=== PATIENT | male | born 1950 | race Caucasian/White ===

== ENCOUNTER 2019-11-28 09:44 | Inpatient (IN) | payer OTHER ==
[~2019-11-28] VITALS: Ht 170.2 cm; Wt 90.3 kg
[2019-11-28 10:53] LABS: BG BASE EXCESS -4.1 mmol/L (-2.0-2.0); BG CARBOXYHEMOGLOBIN 1.1 % (0.5-1.5); BG HCO3 ACT 19.6 mmol/L (22.0-26.0); BG OXYGEN SATURATION 92.9 % (92.0-98.5); BG OXYHEMOGLOBIN 91.9 % (94.0-97.0); BG PCO2 32.2 mmHg (35.0-45.0); BG PH 7.402 (7.350-7.450); BG PO2 67.6 mmHg (75.0-100.0); BG SAMPLE SITE RIGHT RADIAL; BG TOTAL HEMOGLOBIN 14.4 g/dL (12.0-18.0); BG VENT MODE ROOM AIR
[2019-11-28] MEDS ORDERED: MORPHINE SULFATE 4 MG/ML CPJ (NOT FOR IM USE) IV ONE (11:15)
[2019-11-28] MEDS ORDERED: LEVOFLOXACIN 750MG PREMIX 150 ML IV ONE (11:15)
[2019-11-28 11:39] LABS: HEMATOCRIT. 41.1 % (42.0-52.0); HEMOGLOBIN. 13.6 g/dL (14.0-18.0); MEAN CORPUSCULAR HEMOGLOBIN 28.7 pg (28.0-32.0); MEAN CORPUSCULAR VOLUME 86.5 fL (80.0-94.0); MEAN PLATELET VOLUME 9.2 fl (7.4-10.4); PLATELET 191 x1000/uL (130-400); RED BLOOD CELL COUNT 4.75 mill/uL (4.7-6.1); RED CELL DISTRIBUTION WIDTH 15.3 % (11.6-14.6)
[2019-11-28 11:47] LABS: CHLORIDE 100 mEq/L (98-107)
[2019-11-28] MEDS ORDERED: KETOROLAC 30MG/ML VIAL IV ONE (12:00)
[2019-11-28 12:05] LABS: PLATELET ESTIMATE NORMAL
[2019-11-28] MEDS ORDERED: MAGNESIUM/ALUMINUM HYDROXIDE/SIMETHICONE 30ML UDC PO PRN (12:45)
[2019-11-28] MEDS ORDERED: ZOLPIDEM TARTRATE 5MG TABLET PO PRN ×2 (12:45)
[2019-11-28] MEDS ORDERED: CLONIDINE 0.1MG TABLET PO PRN (12:45)
[2019-11-28] MEDS ORDERED: GUAIFENESIN 200MG/10ML SUGAR FREE UDC PO PRN (12:45)
[2019-11-28] MEDS ORDERED: DOCUSATE SODIUM 100MG CAPSULE PO PRN (12:45)
[2019-11-28] MEDS ORDERED: ONDANSETRON HCL 4MG/2ML INJ IV PRN (12:45)
[2019-11-28] MEDS ORDERED: IPRATROPIUM/ALBUTEROL 0.5-3(2.5)MG/3ML NEB NEB PRN (12:45)
[2019-11-28] MEDS ORDERED: ACETAMINOPHEN 325MG TABLET PO PRN (12:45)
[2019-11-28] MEDS ORDERED: NITROGLYCERIN 0.4MG TABLET SL SL PRN (12:45)
[2019-11-28] MEDS ORDERED: CEFTRIAXONE 1 G PREMIX 50 ML IV SCH (13:30)
[2019-11-28] MEDS ORDERED: AZITHROMYCIN 500 MG in DEXT 5% WATER 250 ML IV SCH (14:00)
[2019-11-28] MEDS: ZINC SULFATE 220 MG ( 50 ) CAPSULE PO SCH (14:15)
[2019-11-28] MEDS: GUAIFENESIN/DM 600MG/30MG ER TAB 12HR PO SCH ×2 (14:15→22:00)
[2019-11-28] MEDS ORDERED: ENOXAPARIN 40MG/0.4ML SYR SUBCUT SCH (15:33)
[2019-11-28 16:50] VITALS: BP 104/64
[2019-11-28] MEDS ORDERED: TAMS-11 PO (16:59)
[2019-11-28] MEDS ORDERED: ENAL10TA PO (16:59)
[2019-11-28 17:06] VITALS: BP 104/64
[2019-11-28] MEDS: ENOXAPARIN 40MG/0.4ML SYR SUBCUT SCH (18:57)
[2019-11-28 20:00] VITALS: BP 106/73
[2019-11-28] MEDS: FAMOTIDINE 20MG TABLET PO SCH (22:00)
[2019-11-28] MEDS: ASCORBIC ACID 500 MG TABLET PO SCH (22:00)
[2019-11-29] VITALS: BP 107/75
[2019-11-29] MEDS: TRAMADOL 50MG TABLET PO PRN ×2 (03:16→21:48)
[2019-11-29 04:00] VITALS: BP 109/78
[2019-11-29 08:00] VITALS: BP 116/80
[2019-11-29] MEDS: ZINC SULFATE 220 MG ( 50 ) CAPSULE PO SCH (09:46)
[2019-11-29] MEDS: GUAIFENESIN/DM 600MG/30MG ER TAB 12HR PO SCH ×2 (09:46→21:30)
[2019-11-29] MEDS: ASCORBIC ACID 500 MG TABLET PO SCH ×2 (09:46→21:30)
[2019-11-29] MEDS: ASPIRIN 325MG EC TABLET PO SCH (09:46)
[2019-11-29] MEDS ORDERED: IPRATROPIUM/ALBUTEROL 0.5-3(2.5)MG/3ML NEB HHN PRN (13:30)
[2019-11-29 16:00] VITALS: BP 119/71
[2019-11-29 20:00] VITALS: BP 135/71
[2019-11-29 21:01] LABS: CREATINE KINASE MB FRACTION 1.8 ng/mL (0.5-3.6)
[2019-11-29] MEDS: FAMOTIDINE 20MG TABLET PO SCH (21:30)
[2019-11-29] MEDS: ENOXAPARIN 40MG/0.4ML SYR SUBCUT SCH (21:45)
[2019-11-29] MEDS: IPRATROPIUM/ALBUTEROL 0.5-3(2.5)MG/3ML NEB HHN SCH (21:59)
[2019-11-29] MEDS: CEFTRIAXONE 1 G PREMIX 50 ML IV SCH (23:13)
[2019-11-29] MEDS: AZITHROMYCIN 500 MG in DEXT 5% WATER 250 ML IV SCH (23:51)
[2019-11-30] VITALS: BP 106/72
[2019-11-30] MEDS: IPRATROPIUM/ALBUTEROL 0.5-3(2.5)MG/3ML NEB HHN SCH ×4 (02:15→21:55)
[2019-11-30 04:00] VITALS: BP 93/51
[2019-11-30 04:36] LABS: CLARITY URINE CLOUDY (CLEAR); COLOR URINE DARK YELLOW (YELLOW); KETONES URINE NEGATIVE (NEGATIVE); LEUKOCYTE ESTERASE URINE 1+ (NEGATIVE); NITRITE URINE NEGATIVE (NEGATIVE); OCCULT BLOOD URINE NEGATIVE (NEGATIVE); PROTEIN URINE 2+ (NEGATIVE); SPECIFIC GRAVITY URINE 1.023 (1.005-1.030)
[2019-11-30 08:00] VITALS: BP 121/70
[2019-11-30] MEDS: ASPIRIN 325MG EC TABLET PO SCH (09:00)
[2019-11-30] MEDS: TRAMADOL 50MG TABLET PO PRN (09:00)
[2019-11-30] MEDS: GUAIFENESIN/DM 600MG/30MG ER TAB 12HR PO SCH ×2 (09:00→20:01)
[2019-11-30] MEDS: ZINC SULFATE 220 MG ( 50 ) CAPSULE PO SCH (09:00)
[2019-11-30] MEDS: ASCORBIC ACID 500 MG TABLET PO SCH ×2 (09:00→20:01)
[2019-11-30] MEDS: AZITHROMYCIN 500 MG in DEXT 5% WATER 250 ML IV SCH (10:07)
[2019-11-30] MEDS: CEFTRIAXONE 1 G PREMIX 50 ML IV SCH (10:51)
[2019-11-30 12:00] VITALS: BP 98/70
[2019-11-30 16:00] VITALS: BP 127/77
[2019-11-30] MEDS: ENOXAPARIN 40MG/0.4ML SYR SUBCUT SCH (17:32)
[2019-11-30 20:00] VITALS: BP 112/85
[2019-11-30] MEDS: FAMOTIDINE 20MG TABLET PO SCH (20:03)
[2019-12-01] VITALS: BP 121/85
[2019-12-01] MEDS: IPRATROPIUM/ALBUTEROL 0.5-3(2.5)MG/3ML NEB HHN SCH ×2 (01:08→10:51)
[2019-12-01 04:00] VITALS: BP 107/74
[2019-12-01 06:20] LABS: EOSINOPHILS % 0.7 % (0.0-5.0); HEMATOCRIT. 42.3 % (42.0-52.0); HEMOGLOBIN. 14.1 g/dL (14.0-18.0); LYMPHOCYTES % 8.1 % (20.0-50.0); MEAN CORPUSCULAR HEMOGLOBIN 28.4 pg (28.0-32.0); MEAN CORPUSCULAR VOLUME 85.3 fL (80.0-94.0); MEAN PLATELET VOLUME 9.6 fl (7.4-10.4); MONOCYTES % 7.3 % (2.0-8.0); NEUTROPHILS % 83.9 % (40.0-76.0); PLATELET 219 x1000/uL (130-400); RED BLOOD CELL COUNT 4.96 mill/uL (4.7-6.1); RED CELL DISTRIBUTION WIDTH 15.9 % (11.6-14.6)
[2019-12-01 06:22] LABS: CHLORIDE 97 mEq/L (98-107)
[2019-12-01] MEDS ORDERED: CEFP200T14 MT (07:50)
[2019-12-01] MEDS ORDERED: AZIT500T8 MT (07:50)
[2019-12-01] MEDS ORDERED: GUAI600T26 MT (07:50)
[2019-12-01 08:00] VITALS: BP 120/87
[2019-12-01] MEDS: ZINC SULFATE 220 MG ( 50 ) CAPSULE PO SCH (08:36)
[2019-12-01] MEDS: GUAIFENESIN/DM 600MG/30MG ER TAB 12HR PO SCH (08:36)
[2019-12-01] MEDS: ASCORBIC ACID 500 MG TABLET PO SCH (08:36)
[2019-12-01] MEDS: ASPIRIN 325MG EC TABLET PO SCH (08:36)
[2019-12-01] MEDS ORDERED: AZITHROMYCIN 500 MG TABLET PO SCH (09:00)
[2019-12-01] MEDS ORDERED: POTASSIUM CHLORIDE 20MEQ TABLET SR PO SCH (10:00)
[2019-12-01] MEDS: CEFTRIAXONE 1 G PREMIX 50 ML IV SCH (10:00)
[2019-12-01 10:46] VITALS: BP 120/87
[2019-12-01 12:00] VITALS: BP 124/89
== END 2019-12-01 12:05 | disposition home or self-care (01) | DRG 193 ==
LOC: ER 10:19 → ENRESERV 15:50 → 7EST 16:54 → 5WST 11-29 15:08
PROVIDERS: ADMIT Internal Medicine; ATTEND Internal Medicine
DX: J18.9 Pneumonia, unspecified organism (principal); J96.01 Acute respiratory failure with hypoxia; N17.0 Acute kidney failure with tubular necrosis; E44.1 Mild protein-calorie malnutrition; E83.51 Hypocalcemia; I10 Essential (primary) hypertension; K40.90 Unilateral inguinal hernia, without obstruction or gangrene, not specified as recurrent; Z20.828 Contact with and (suspected) exposure to other viral communicable diseases; Z79.899 Other long term (current) drug therapy; Z68.31 Body mass index [BMI] 31.0-31.9, adult; Z82.49 Family history of ischemic heart disease and other diseases of the circulatory system; Z87.440 Personal history of urinary (tract) infections; Z03.818 Encounter for observation for suspected exposure to other biological agents ruled out
CPT/HCPCS: 36415; 36600; 71045; 80053; 80061; 81003; 82375; 82550; 82553; 82805; 83036; 83615; 83880; 84145; 84484; 85025; 85379; 86140; 87635; 87804; 93005; 94640; 99291; J0456; J0696; J1650; J1885; J1956; J7060

== ENCOUNTER 2019-12-03 22:21 | Inpatient (IN) | payer OTHER ==
[~2019-12-03] VITALS: Ht 165.1 cm; Wt 89.4 kg
[~2019-12-03 22:21] MED LIST: AZIT500T8 MT; CEFP200T14 MT; ENAL10TA PO; GUAI600T26 MT; TAMS-11 PO
[2019-12-03] MEDS ORDERED: MORPHINE SULFATE 4 MG/ML CPJ (NOT FOR IM USE) IV STA (23:15)
[2019-12-03] MEDS ORDERED: ONDANSETRON HCL 4MG/2ML INJ IV STA (23:15)
[2019-12-03] MEDS ORDERED: SODIUM CHLORIDE 0.9% 1,000 ML IV ONE (23:30)
[2019-12-03 23:40] LABS: HEMATOCRIT. 44.2 % (42.0-52.0); HEMOGLOBIN. 14.7 g/dL (14.0-18.0); MEAN CORPUSCULAR HEMOGLOBIN 28.4 pg (28.0-32.0); MEAN CORPUSCULAR VOLUME 85.5 fL (80.0-94.0); MEAN PLATELET VOLUME 8.8 fl (7.4-10.4); PLATELET 286 x1000/uL (130-400); RED BLOOD CELL COUNT 5.17 mill/uL (4.7-6.1); RED CELL DISTRIBUTION WIDTH 16.1 % (11.6-14.6)
[2019-12-03] MEDS ORDERED: FENTANYL CITRATE/PF 50MCG/ML 2ML VIAL IV ONE (23:45)
[2019-12-03 23:47] LABS: CHLORIDE 90 mEq/L (98-107)
[2019-12-03 23:56] LABS: CREATINE KINASE 120 IU/L (39-308)
[2019-12-03 23:59] LABS: D-DIMER 11.06 mg/L FEU (<0.50); INR 1.3; PROTHROMBIN TIME 13.6 sec (9.6-11.0)
[2019-12-03 23:59] LABS: CLARITY URINE TURBID (CLEAR); COLOR URINE DARK YELLOW (YELLOW); KETONES URINE TRACE (NEGATIVE); LEUKOCYTE ESTERASE URINE TRACE (NEGATIVE); NITRITE URINE NEGATIVE (NEGATIVE); OCCULT BLOOD URINE NEGATIVE (NEGATIVE); PROTEIN URINE 2+ (NEGATIVE); SPECIFIC GRAVITY URINE 1.023 (1.005-1.030)
[2019-12-04] VITALS (57 sets, daily range): BP systolic 60–158; BP diastolic 37–109
[2019-12-04] MEDS ORDERED: SODIUM CHLORIDE 0.9% 1000ML BAG (SEPSIS BOLUS) IV ONE
[2019-12-04 00:04] LABS: PLATELET ESTIMATE NORMAL
[2019-12-04] MEDS ORDERED: DOPAMINE 800MG/500ML PREMIX 500 ML IV ONE (01:45)
[2019-12-04] MEDS ORDERED: DOPAMINE 800MG/500ML PREMIX 500 ML IV SCH (02:00)
[2019-12-04] MEDS ORDERED: FENTANYL CITRATE/PF 50MCG/ML 2ML VIAL ONE (03:21)
[2019-12-04] MEDS ORDERED: PIPERACILLIN/TAZ 3.375G PREMIX 50 ML IV SCH (12:00)
[2019-12-04] MEDS ORDERED: DIPHENHYDRAMINE 50MG/ML VIAL IV PRN (12:00)
[2019-12-04] MEDS ORDERED: ONDANSETRON HCL 4MG/2ML INJ IV PRN (12:00)
[2019-12-04] MEDS ORDERED: DOPAMINE 400MG/250ML PREMIX 250 ML IV PRN (12:00)
[2019-12-04] MEDS: PANTOPRAZOLE SODIUM 40 MG/VIAL IV SCH ×2 (13:52→20:54)
[2019-12-04] MEDS: SODIUM CHLORIDE 0.9% 1,000 ML IV SCH ×2 (13:53→20:54)
[2019-12-04] MEDS: MORPHINE SULFATE 2 MG/ML CPJ (NOT FOR IM USE) IV PRN (13:54)
[2019-12-04] MEDS ORDERED: LIDOCAINE HCL 1% 20ML VIAL (Pyxis) INJ INFIL NR (14:30)
[2019-12-04] MEDS: PIPERACILLIN/TAZOBACTAM 2.25 G in DEXTROSE 5% WATER 50 ML IV SCH ×2 (15:32→20:54)
[2019-12-04 17:41] LABS: BG CARBOXYHEMOGLOBIN 0.3 % (0.5-1.5); BG DEOXYHEMOGLOBIN 8.1 % (0.0-5.0); BG FRACTION INSPIRED OXYGEN 28; BG HCO3 ACT 19.3 mmol/L (22.0-26.0); BG METHEMOGLOBIN 0.4 % (0.0-1.5); BG OXYGEN SATURATION 91.8 % (92.0-98.5); BG OXYHEMOGLOBIN 91.2 % (94.0-97.0); BG PCO2 30.6 mmHg (35.0-45.0); BG PH 7.418 (7.350-7.450); BG PO2 64.9 mmHg (75.0-100.0); BG SAMPLE SITE RIGHT RADIAL; BG TOTAL HEMOGLOBIN 13.8 g/dL (12.0-18.0); BG VENT MODE NASAL CANNULA
[2019-12-04] MEDS ORDERED: ALBUMIN HUMAN 25GM/500ML (5%) IV SCH (21:00)
[2019-12-04 22:52] LABS: HEMATOCRIT. 41.4 % (42.0-52.0); HEMOGLOBIN. 13.6 g/dL (14.0-18.0); MEAN CORPUSCULAR VOLUME 85.2 fL (80.0-94.0); MEAN PLATELET VOLUME 7.8 fl (7.4-10.4); RED BLOOD CELL COUNT 4.86 mill/uL (4.7-6.1); RED CELL DISTRIBUTION WIDTH 15.7 % (11.6-14.6)
[2019-12-04 22:59] LABS: CHLORIDE 100 mEq/L (98-107)
[2019-12-05] VITALS (96 sets, daily range): BP systolic 90–123; BP diastolic 47–80
[2019-12-05] MEDS ORDERED: ALBUMIN HUMAN 25GM/100ML (25%) IV SCH (00:15)
[2019-12-05] MEDS ORDERED: CALCIUM GLUCONATE 3,000 MG in DEXT 5% WATER 250 ML IV SCH (02:00)
[2019-12-05] MEDS: PIPERACILLIN/TAZOBACTAM 2.25 G in DEXTROSE 5% WATER 50 ML IV SCH ×4 (03:01→20:40)
[2019-12-05 05:31] LABS: HEMATOCRIT. 37.8 % (42.0-52.0); HEMOGLOBIN. 12.5 g/dL (14.0-18.0); MEAN CORPUSCULAR HEMOGLOBIN 28.1 pg (28.0-32.0); MEAN CORPUSCULAR VOLUME 85.1 fL (80.0-94.0); MEAN PLATELET VOLUME 7.7 fl (7.4-10.4); PLATELET 196 x1000/uL (130-400); RED BLOOD CELL COUNT 4.44 mill/uL (4.7-6.1); RED CELL DISTRIBUTION WIDTH 15.8 % (11.6-14.6)
[2019-12-05 05:46] LABS: CHLORIDE 102 mEq/L (98-107)
[2019-12-05 05:55] LABS: PHOSPHORUS 4.3 mg/dL (2.5-4.9)
[2019-12-05 07:51] LABS: PLATELET ESTIMATE NORMAL
[2019-12-05 07:54] LABS: PLATELET 201 x1000/uL (130-400)
[2019-12-05] MEDS: SODIUM CHLORIDE 0.9% 1,000 ML IV SCH ×2 (08:50→17:40)
[2019-12-05] MEDS: PANTOPRAZOLE SODIUM 40 MG/VIAL IV SCH (08:50)
[2019-12-05 10:01] LABS: PLATELET ESTIMATE NORMAL
[2019-12-05] MEDS ORDERED: FUROSEMIDE 40MG/4ML VIAL IVP SCH (11:15)
[2019-12-05] MEDS ORDERED: CALCIUM GLUCONATE 3,000 MG in DEXT 5% WATER 220 ML IV SCH (12:00)
[2019-12-06] VITALS (92 sets, daily range): BP systolic 93–141; BP diastolic 43–81
[2019-12-06] MEDS: PIPERACILLIN/TAZOBACTAM 2.25 G in DEXTROSE 5% WATER 50 ML IV SCH ×4 (02:35→20:22)
[2019-12-06 05:29] LABS: HEMATOCRIT. 37.9 % (42.0-52.0); HEMOGLOBIN. 12.3 g/dL (14.0-18.0); MEAN CORPUSCULAR HEMOGLOBIN 27.8 pg (28.0-32.0); MEAN CORPUSCULAR VOLUME 85.5 fL (80.0-94.0); MEAN PLATELET VOLUME 7.4 fl (7.4-10.4); PLATELET 173 x1000/uL (130-400); RED BLOOD CELL COUNT 4.43 mill/uL (4.7-6.1); RED CELL DISTRIBUTION WIDTH 15.4 % (11.6-14.6)
[2019-12-06 05:52] LABS: PHOSPHORUS 3.3 mg/dL (2.5-4.9)
[2019-12-06 06:46] LABS: FOLIC ACID (FOLATE) SERUM 11.7 ng/mL (>5.38)
[2019-12-06] MEDS: SODIUM CHLORIDE 0.9% 1,000 ML IV SCH ×2 (06:47→14:20)
[2019-12-06 08:06] LABS: MICROALBUMIN RANDOM URINE 133.1 ug/mL (Not Estab.)
[2019-12-06] MEDS: FUROSEMIDE 40MG/4ML VIAL IVP SCH (08:39)
[2019-12-06 11:09] LABS: BG BASE EXCESS 0.7 mmol/L (-2.0-2.0); BG CARBOXYHEMOGLOBIN 0.5 % (0.5-1.5); BG DEOXYHEMOGLOBIN 11.4 % (0.0-5.0); BG FRACTION INSPIRED OXYGEN 21; BG HCO3 ACT 24.2 mmol/L (22.0-26.0); BG METHEMOGLOBIN 0.1 % (0.0-1.5); BG OXYGEN SATURATION 88.5 % (92.0-98.5); BG PCO2 35.6 mmHg (35.0-45.0); BG PH 7.451 (7.350-7.450); BG PO2 52.6 mmHg (75.0-100.0); BG SAMPLE SITE RIGHT RADIAL; BG TOTAL HEMOGLOBIN 13.3 g/dL (12.0-18.0); BG VENT MODE ROOM AIR
[2019-12-06] MEDS ORDERED: POTASSIUM CHLORIDE INJ 40 MEQ in DEXT 5% WATER 250 ML IV SCH (12:00)
[2019-12-06 12:11] LABS: PLATELET ESTIMATE NORMAL
[2019-12-06] MEDS ORDERED: MAGNESIUM 4 G PREMIX 100 ML IV SCH (14:00)
[2019-12-07] VITALS (37 sets, daily range): BP systolic 107–140; BP diastolic 48–99
[2019-12-07] MEDS: PIPERACILLIN/TAZOBACTAM 2.25 G in DEXTROSE 5% WATER 50 ML IV SCH ×4 (02:53→20:56)
[2019-12-07] MEDS: FUROSEMIDE 40MG/4ML VIAL IVP SCH (08:07)
[2019-12-07] MEDS: MORPHINE SULFATE 2 MG/ML CPJ (NOT FOR IM USE) IV PRN (08:08)
[2019-12-07] MEDS ORDERED: POLYETHYLENE GLYCOL 3350 (17GM) 1 DOSE PACK PO PRN (12:45)
[2019-12-07 16:48] LABS: CHLORIDE 103 mEq/L (98-107)
[2019-12-07 16:50] LABS: HEMOGLOBIN. 13.5 g/dL (14.0-18.0); MEAN CORPUSCULAR HEMOGLOBIN 28.1 pg (28.0-32.0); MEAN CORPUSCULAR VOLUME 85.2 fL (80.0-94.0); MEAN PLATELET VOLUME 7.3 fl (7.4-10.4); PLATELET 178 x1000/uL (130-400); RED BLOOD CELL COUNT 4.81 mill/uL (4.7-6.1); RED CELL DISTRIBUTION WIDTH 15.7 % (11.6-14.6)
[2019-12-07 18:02] LABS: PLATELET ESTIMATE NORMAL
[2019-12-07] MEDS: CARVEDILOL 3.125 MG TABLET PO SCH (20:54)
[2019-12-08] VITALS (12 sets, daily range): BP systolic 87–129; BP diastolic 41–69
[2019-12-08] MEDS ORDERED: MAGNESIUM 4 G PREMIX 100 ML IV SCH (01:00)
[2019-12-08] MEDS: PIPERACILLIN/TAZOBACTAM 2.25 G in DEXTROSE 5% WATER 50 ML IV SCH ×4 (01:13→20:28)
[2019-12-08 06:17] LABS: BASOPHILS % 0.5 % (0.0-2.0); EOSINOPHILS % 1.7 % (0.0-5.0); HEMATOCRIT. 37.8 % (42.0-52.0); HEMOGLOBIN. 12.5 g/dL (14.0-18.0); LYMPHOCYTES % 7.4 % (20.0-50.0); MEAN CORPUSCULAR HEMOGLOBIN 28.1 pg (28.0-32.0); MEAN CORPUSCULAR VOLUME 85.1 fL (80.0-94.0); MONOCYTES % 9.8 % (2.0-8.0); NEUTROPHILS % 80.6 % (40.0-76.0); PLATELET 160 x1000/uL (130-400); RED BLOOD CELL COUNT 4.44 mill/uL (4.7-6.1); RED CELL DISTRIBUTION WIDTH 15.6 % (11.6-14.6)
[2019-12-08 06:58] LABS: CHLORIDE 105 mEq/L (98-107)
[2019-12-08 07:03] LABS: PHOSPHORUS 2.4 mg/dL (2.5-4.9)
[2019-12-08] MEDS: CARVEDILOL 3.125 MG TABLET PO SCH ×2 (09:53→20:29)
[2019-12-08] MEDS ORDERED: POTASSIUM CHLORIDE 10MEQ TABLET SR PO NR (10:15)
[2019-12-08] MEDS: FUROSEMIDE 40MG/4ML VIAL IVP SCH (11:00)
[2019-12-08] MEDS ORDERED: MAGNESIUM 4 G PREMIX 100 ML IV NR (13:30)
[2019-12-08] MEDS: LOSARTAN POTASSIUM 25 MG TABLET PO SCH (13:55)
[2019-12-08] MEDS ORDERED: POTASSIUM PHOS,M-BASIC-D-BASIC 20 MMOL in DEXT 5% WATER 243.3333 ML IV NR (14:00)
[2019-12-09] VITALS (17 sets, daily range): BP systolic 92–127; BP diastolic 28–87
[2019-12-09] MEDS: PIPERACILLIN/TAZOBACTAM 3.375 G in DEXT 5% WATER 100 ML IV SCH ×4 (01:44→22:06)
[2019-12-09 06:57] LABS: BASOPHILS % 0.5 % (0.0-2.0); HEMATOCRIT. 35.7 % (42.0-52.0); HEMOGLOBIN. 11.8 g/dL (14.0-18.0); LYMPHOCYTES % 9.4 % (20.0-50.0); MEAN CORPUSCULAR HEMOGLOBIN 28.1 pg (28.0-32.0); MEAN CORPUSCULAR VOLUME 84.7 fL (80.0-94.0); MEAN PLATELET VOLUME 7.2 fl (7.4-10.4); MONOCYTES % 10.2 % (2.0-8.0); NEUTROPHILS % 76.9 % (40.0-76.0); PLATELET 152 x1000/uL (130-400); RED BLOOD CELL COUNT 4.21 mill/uL (4.7-6.1); RED CELL DISTRIBUTION WIDTH 16.2 % (11.6-14.6)
[2019-12-09 07:12] LABS: CHLORIDE 101 mEq/L (98-107)
[2019-12-09 07:19] LABS: PHOSPHORUS 3.1 mg/dL (2.5-4.9)
[2019-12-09] MEDS: CARVEDILOL 3.125 MG TABLET PO SCH ×2 (08:52→22:07)
[2019-12-09] MEDS: FUROSEMIDE 40MG/4ML VIAL IVP SCH (08:52)
[2019-12-09] MEDS: LOSARTAN POTASSIUM 25 MG TABLET PO SCH (08:52)
[2019-12-09] MEDS: METOCLOPRAMIDE HCL 10MG/2ML VIAL IV SCH ×2 (17:34→22:06)
[2019-12-09] MEDS: SORBITOL 70% SOLN 30ML PO SCH ×2 (17:35→22:06)
[2019-12-10] VITALS (21 sets, daily range): BP systolic 104–153; BP diastolic 44–94
[2019-12-10] MEDS: SORBITOL 70% SOLN 30ML PO SCH ×2 (04:15→10:00)
[2019-12-10] MEDS: METOCLOPRAMIDE HCL 10MG/2ML VIAL IV SCH ×3 (04:15→21:18)
[2019-12-10 06:29] LABS: BASOPHILS % 0.8 % (0.0-2.0); EOSINOPHILS % 1.9 % (0.0-5.0); HEMATOCRIT. 40.3 % (42.0-52.0); HEMOGLOBIN. 13.2 g/dL (14.0-18.0); LYMPHOCYTES % 10.4 % (20.0-50.0); MEAN CORPUSCULAR HEMOGLOBIN 27.9 pg (28.0-32.0); MEAN CORPUSCULAR VOLUME 84.8 fL (80.0-94.0); MEAN PLATELET VOLUME 7.1 fl (7.4-10.4); MONOCYTES % 10.4 % (2.0-8.0); NEUTROPHILS % 76.5 % (40.0-76.0); PLATELET 164 x1000/uL (130-400); RED BLOOD CELL COUNT 4.75 mill/uL (4.7-6.1)
[2019-12-10 06:35] LABS: CHLORIDE 105 mEq/L (98-107)
[2019-12-10 06:44] LABS: PHOSPHORUS 3.1 mg/dL (2.5-4.9)
[2019-12-10] MEDS: FUROSEMIDE 40MG/4ML VIAL IVP SCH (09:00)
[2019-12-10] MEDS: CARVEDILOL 3.125 MG TABLET PO SCH ×2 (09:00→20:44)
[2019-12-10] MEDS: LOSARTAN POTASSIUM 25 MG TABLET PO SCH (09:00)
[2019-12-10] MEDS ORDERED: LIDOCAINE HCL 1% 20ML VIAL (Pyxis) INJ ONE (11:45)
[2019-12-10] MEDS ORDERED: FENTANYL CITRATE/PF 50MCG/ML 2ML VIAL ONE (11:45)
[2019-12-10] MEDS ORDERED: SODIUM BICARBONATE 4% (2.4MEQ) 5ML VIAL IV ONE (11:45)
[2019-12-10] MEDS ORDERED: MAGNESIUM 4 G PREMIX 100 ML IV SCH (13:00)
[2019-12-10] MEDS ORDERED: KETAMINE HCL 50 MG/ML 10ML ONE (14:07)
[2019-12-10] MEDS ORDERED: MIDAZOLAM HCL 2 MG/2 ML VIAL ONE (14:08)
[2019-12-10] MEDS ORDERED: PHENYLEPHRINE HCL 10 MG/ML 1ML (IV VIAL) IV ONE (14:09)
[2019-12-10] MEDS ORDERED: PROPOFOL 200MG/20ML VIAL IV ONE (14:09)
[2019-12-10] MEDS ORDERED: EPHEDRINE SULFATE 50MG/ML VIAL ONE (14:09)
[2019-12-10] MEDS ORDERED: SODIUM CHLORIDE 0.9% 10ML VIAL ONE (14:13)
[2019-12-10] MEDS ORDERED: FENTANYL CITRATE/PF 50MCG/ML 2ML VIAL IV SCH (15:00)
[2019-12-10] MEDS ORDERED: FUROSEMIDE 40MG/4ML VIAL IVP NR (15:15)
[2019-12-10] MEDS ORDERED: MORPHINE SULFATE 2 MG/ML CPJ (NOT FOR IM USE) IV PRN (18:00)
[2019-12-11] VITALS (12 sets, daily range): BP systolic 93–131; BP diastolic 53–77
[2019-12-11] MEDS: METOCLOPRAMIDE HCL 10MG/2ML VIAL IV SCH ×2 (04:16→10:05)
[2019-12-11 06:35] LABS: HEMATOCRIT 38.6 % (42.0-52.0); HEMOGLOBIN 12.7 g/dL (14.0-18.0); MEAN CORPUSCULAR HEMOGLOBIN 27.8 pg (28.0-32.0); MEAN CORPUSCULAR VOLUME 84.7 fL (80.0-94.0); PLATELET 143 x1000/uL (130-400); RED BLOOD CELL COUNT 4.55 mill/uL (4.7-6.1); RED CELL DISTRIBUTION WIDTH 16.5 % (11.6-14.6)
[2019-12-11 06:45] LABS: CHLORIDE 109 mEq/L (98-107)
[2019-12-11] MEDS: CARVEDILOL 3.125 MG TABLET PO SCH (08:56)
[2019-12-11] MEDS: FUROSEMIDE 40MG/4ML VIAL IVP SCH (08:56)
[2019-12-11] MEDS: LOSARTAN POTASSIUM 25 MG TABLET PO SCH (08:57)
== END 2019-12-11 18:38 | disposition home or self-care (01) | DRG 871 ==
LOC: ER 22:21 → MICUSO 12-04 02:12 → ENRESERV 12-04 09:19 → 5EST 12-07 10:06
PROVIDERS: ADMIT Ophthalmology; ATTEND Ophthalmology
PROC: 0W9D30Z Drainage of Pericardial Cavity with Drainage Device, Percutaneous Approach (ICD-10-PCS; principal; 2019-12-04)
PROC: 0DB68ZX Excision of Stomach, Via Natural or Artificial Opening Endoscopic, Diagnostic (ICD-10-PCS; 2019-12-10)
PROC: 0BBK3ZX Excision of Right Lung, Percutaneous Approach, Diagnostic (ICD-10-PCS; 2019-12-10)
PROC: 0DJD8ZZ Inspection of Lower Intestinal Tract, Via Natural or Artificial Opening Endoscopic (ICD-10-PCS; 2019-12-10)
DX: A41.9 Sepsis, unspecified organism (principal); R65.21 Severe sepsis with septic shock; K85.90 Acute pancreatitis without necrosis or infection, unspecified; K72.00 Acute and subacute hepatic failure without coma; I50.43 Acute on chronic combined systolic (congestive) and diastolic (congestive) heart failure; N17.0 Acute kidney failure with tubular necrosis; J18.9 Pneumonia, unspecified organism; I31.3 Pericardial effusion (noninflammatory); E87.2 Acidosis; E87.1 Hypo-osmolality and hyponatremia; R18.8 Other ascites; C79.51 Secondary malignant neoplasm of bone; J81.1 Chronic pulmonary edema; I31.4 Cardiac tamponade; I31.2 Hemopericardium, not elsewhere classified; I13.0 Hypertensive heart and chronic kidney disease with heart failure and stage 1 through stage 4 chronic kidney disease, or unspecified chronic kidney disease; J91.8 Pleural effusion in other conditions classified elsewhere; J44.0 Chronic obstructive pulmonary disease with (acute) lower respiratory infection; C80.1 Malignant (primary) neoplasm, unspecified; K74.60 Unspecified cirrhosis of liver; K40.90 Unilateral inguinal hernia, without obstruction or gangrene, not specified as recurrent; N40.0 Benign prostatic hyperplasia without lower urinary tract symptoms; N18.9 Chronic kidney disease, unspecified; D64.9 Anemia, unspecified; E11.22 Type 2 diabetes mellitus with diabetic chronic kidney disease; E83.39 Other disorders of phosphorus metabolism; E87.6 Hypokalemia; K27.9 Peptic ulcer, site unspecified, unspecified as acute or chronic, without hemorrhage or perforation; K29.60 Other gastritis without bleeding; K44.9 Diaphragmatic hernia without obstruction or gangrene; K57.30 Diverticulosis of large intestine without perforation or abscess without bleeding; E83.51 Hypocalcemia; K64.8 Other hemorrhoids; K80.20 Calculus of gallbladder without cholecystitis without obstruction; Z87.891 Personal history of nicotine dependence; Z03.818 Encounter for observation for suspected exposure to other biological agents ruled out; Z79.2 Long term (current) use of antibiotics; Z79.899 Other long term (current) drug therapy
CPT/HCPCS: 32405; 36415; 36600; 71045; 71250; 74176; 77012; 80048; 80053; 80076; 81003; 82043; 82105; 82247; 82330; 82375; 82378; 82550; 82570; 82607; 82728; 82746; 82805; 83540; 83550; 83605; 83615; 83735; 83880; 83935; 84075; 84100; 84145; 84153; 84300; 84450; 84460; 84484; 84550; 85025; 85027; 85379; 86140; 86301; 87635; 88108; 88305; 88312; 88313; 93005; 93306; 99152; 99153; 99291; C9113; J0610; J1265; J1940; J2250; J2270; J2370; J2405; J2543; J2704; J2765; J3010; J3475; J3480; J3490; J7030; J7060; P9041; G0103; G0500